=== PATIENT | male | born 1955 | race Hispanic/Latino ===

== ENCOUNTER → 2019-06-17 | Day surgery (SDC) | payer BC ==
--- NOTE | 2019-06-16 17:15 | NUR ---
Pt arrived in general good physical health for interview of scheduled procedure. Review of medical history and current medications. Procedural consent, pre-op orders, and YANIV education completed. All questions clarified and or answered where appropriate. pt verbalizes understanding to include day of procedure expectations. - [facility]
[2019-06-16 17:53] LABS: BASOPHILS # (AUTO) 0.1 (0.0-0.1); BASOPHILS % 0.6 % (0.0-1.0); EOSINOPHILS # (AUTO) 0.2 (0.0-0.4); HEMATOCRIT 43.4 % (38.2-49.6); HEMOGLOBIN 14.6 g/dL (14.0-18.0); LYMPHOCYTES # (AUTO) 1.9 (1.0-3.2); LYMPHOCYTES % 21.4 % (18.0-39.1); MEAN CORPUSCULAR HGB CONC 33.6 g/dL (31-35); MEAN CORPUSCULAR VOLUME 86.3 fL (81-99); MONOCYTES # (AUTO) 0.7 (0.2-0.8); MONOCYTES % 7.4 % (4.4-11.3); NEUTROPHILS # (AUTO) 6.1 (2.1-6.9); PLATELET COUNT 191 x10e3/uL (140-360); RED BLOOD COUNT 5.03 x10e6/uL (4.3-5.7); RED CELL DISTRIBUTION WIDTH 14.6 % (11.7-14.4)
[2019-06-16 18:07] LABS: INR 0.86; PARTIAL THROMBOPLASTIN TIME 26.7 seconds (23.8-35.5); PROTHROMBIN TIME 12.2 seconds (11.9-14.5)
[2019-06-16 18:11] LABS: ALANINE AMINOTRANSFERASE 27 IU/L (0-55); ALBUMIN 3.4 g/dL (3.5-5.0); ALBUMIN/GLOBULIN RATIO 0.9 (0.8-2.0); ALKALINE PHOSPHATASE 70 IU/L (40-150); ANION GAP 12.9 mmol/L (8-16); BLOOD UREA NITROGEN 16 mg/dL (7-26); BUN/CREATININE RATIO 14 (6-25); CALCIUM 10.2 mg/dL (8.4-10.2); CARBON DIOXIDE 28 mmol/L (22-29); CHLORIDE 102 mmol/L (98-107); CREATININE, SERUM 1.18 mg/dL (0.72-1.25); EST GLOMERULAR FILTRATION RATE > 60 ML/MIN (60-); GLUCOSE 182 mg/dL (74-118); POTASSIUM 3.9 mmol/L (3.5-5.1); SODIUM 139 mmol/L (136-145)
[~2019-06-17] VITALS: Ht 179.1 cm; Wt 104.3 kg
[~2019-06-17] MED LIST: HYDROCHLOROTHIA25 MG PO; LIDOCAINE HCL 2% LOCAL INJ 5 ML SDV VIAL INJ ONE; PROPOFOL IV EMULSION 10 MG/ML 20 ML VIAL ONE
--- NOTE | 2019-06-17 13:50 | NUR ---
1300 - pt received for YANIV to OR 7, placed on bedside monitoring. pt positioned for procedure. IV site patent to R AC area , VS wnl, NSR rythm 1305 - hurricaine spray (spray 1) to oral cavity 1307 - hurricaine spray (spray 2) to oral cavity 1326 - all responsible staff present, Timeout performed 1327 - bite block positioned 1331 - YANIV probe passed 1341- agitated saline injected for bubble study 1342 - YANIV probe removed , no gross trauma or distress observed 1350 - pt taken to CCL 9 for further recovery
--- NOTE | 2019-06-17 14:00 | NUR ---
Hand off to Dulce Ro RN for recovery . Review of orders and disposition. transfer of care - [facility] [place]
== END | disposition home or self-care (01) ==
LOC: CATH LAB 06-16 16:50
PROVIDERS: ATTEND Internal Medicine Cardiovascular Disease
DX: I51.89 Other ill-defined heart diseases (principal); Z01.810 Encounter for preprocedural cardiovascular examination; Z01.812 Encounter for preprocedural laboratory examination
CPT/HCPCS: 36415; 80053; 85025; 85610; 85730; 93005; 93312; 93320; 93325; J2001; J2250; J2704; J7030

== ENCOUNTER → 2019-06-25 | Outpatient (CLI) | payer BC ==
[~2019-06-25] MED LIST changes: +IOPAMIDOL 370 MG/ML 200 ML INFUS..BTL INJ ONE; -LIDOCAINE HCL 2% LOCAL INJ 5 ML SDV VIAL INJ ONE; +METOPROLOL TARTRATE INJ 1 MG/ML VIAL ONE; +NITROGLYCERIN 0.4 MG SUBL ONE; -PROPOFOL IV EMULSION 10 MG/ML 20 ML VIAL ONE; +SODIUM CHLORIDE 0.9% 100 ML 100 ML ONE
[2019-06-25 08:46] LABS: BLOOD UREA NITROGEN 15 mg/dL (7-26); BUN/CREATININE RATIO 16 (6-25); CREATININE, SERUM 0.93 mg/dL (0.72-1.25); EST GLOMERULAR FILTRATION RATE > 60 ML/MIN (60-)
--- NOTE | 2019-06-26 16:26 | Diagnostic Imaging Report ---
EXAM: CALCIUM SCORE AND CORONARY CTA INDICATION: ^[id number] ^0900 ^LT ATRIAL MASS/SOB COMPARISON: None. TECHNIQUE: Multi-detector CT technology was employed (64 MDCT [employer]). Minimal slice thickness with retrospective gating was performed following the intravenous administration of contrast material. In addition delayed images of the heart were obtained for evaluation of a cardiac mass. The patient was premedicated with 2.5 mg i.v. metoprolol and 0.4 mg sublingual nitroglycerin for heart rate control and coronary dilation, respectively. IV CONTRAST: 100 mL of Isovue-370 ORAL CONTRAST: None COMPLICATIONS: None RADIATION DOSE: Total DLP: 1789.2 mGy*cm Estimated effective dose: (DLP x 0.015 x size factor) mSv CTDIvol has been reviewed. It is below the limits set by the Radiation Protocol Committee (RPC). For optimization of anatomic evaluation, multiplanar reconstruction, maximum intensity projections, and advanced 3-D off-line postprocessing were performed on a dedicated stand-alone workstation under the direct supervision of the interpreting physician. QUALITY: Excellent FINDINGS: CALCIUM SCORE: The observed Agatston Calcium Score of 0 is at percentile 0% for subjects of the same age and gender who are free of clinical cardiovascular disease and treated diabetes. The Agatston score for each vessel is as follows: LM: 0 LAD: 0 LCx: 0 RCA: 0 DISTRIBUTION OF THE CALCIFIED PLAQUES: No identifiable calcified plaques in the coronary arteries. CORONARY ANATOMY: There is normal origin of the coronary arteries. Left Main Coronary Artery: The left main is normal sized vessel that bifurcates into the LAD and circumflex. There is no evidence of atherosclerotic changes or stenotic disease. Left Anterior Descending Coronary Artery: The LAD is a normal size vessel that wraps around the apex. It gives rise to 2 acute diagonal branches. There is no evidence of atherosclerotic changes or stenotic disease. Left Circumflex Coronary Artery: The LCX is a normal size vessel, which is non-dominant. It gives rise to 2 obtuse marginal branches. There is no evidence of atherosclerotic changes or stenotic disease. Right Coronary Artery: The RCA is a normal size vessel, which is dominant. It gives rise to a conus branch, AV kyle branch, and 2 acute marginal branches. In its distal segment it bifurcates into the PDA and PV branch. There is no evidence of atherosclerotic changes or stenotic disease. CARDIAC MORPHOLOGY AND FUNCTION: The left atrium is moderately enlarged, measuring 4.8 cm in AP diameter and contains a mildly enhancing 4.6 x 3.2 cm mass. The mass has a broad attachment to the fossa ovalis and shows more heterogeneous appearance on the delayed images. 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 There is no protrusion of the mass into the mitral valve. The left ventricle is borderline in size with a left ventricular end-diastolic diameter of of 5.7 cm. The right atrium and right ventricle appear also mildly prominent. Mild calcifications of the mitral valve. LIMITED CHEST: Limited views of the visualized chest show no abnormality within chest wall and mediastinum. No mediastinal lymphadenopathy. Mild linear scarring in the right middle lobe and lingula. The visualized portions of the ascending and descending thoracic aorta are of normal size. LIMITED ABDOMEN: 1.2 cm indeterminate left adrenal gland nodule (series 3, image 229). BONES: No acute osseous abnormalities. IMPRESSION: 1. Total Agatston Calcium Score: 0 that corresponds to percentile 0%, representing no identifiable calcified plaques in the coronary arteries. 2. Normal coronary anatomy without evidence of atherosclerotic changes or stenotic disease. CAD-GEOFFREY 0 Reference: http://c.[email or web address]/sites/scct.site-[email or web address]/resource/resmgr/Docs/JCCT_Guidelines_ AD_RADS.pdf 3. Large (4.6 x 3.2 cm) left atrial mass with CT findings favoring left atrial myxoma or thrombus, though cardiac MRI is more sensitive for its evaluation. There is no protrusion into the mitral valve on 4D cine of the heart. 4. Indeterminate 1.2 cm left adrenal gland nodule. If this finding is unknown to the patient, recommend further evaluation with MRI or CT with and without contrast adrenal gland mass protocol. Signed by: Dr. Tatyana Diez M.D. on 06/26/2019 4:23 PM
== END ==
LOC: CT 07:00
PROVIDERS: ATTEND Internal Medicine Cardiovascular Disease
DX: D15.1 Benign neoplasm of heart (principal); R06.02 Shortness of breath
CPT/HCPCS: 36415; 75574; 82565; 84520; Q9967

== ENCOUNTER → 2019-07-02 | Day surgery (SDC) | payer BC ==
[2019-06-30 12:25] LABS: BASOPHILS # (AUTO) 0.1 (0.0-0.1); BASOPHILS % 0.8 % (0.0-1.0); EOSINOPHILS # (AUTO) 0.2 (0.0-0.4); EOSINOPHILS % 2.2 % (0.0-6.0); HEMOGLOBIN 14.6 g/dL (14.0-18.0); LYMPHOCYTES # (AUTO) 1.9 (1.0-3.2); LYMPHOCYTES % 21.7 % (18.0-39.1); MEAN CORPUSCULAR HEMOGLOBIN 28.6 pg (28-32); MEAN CORPUSCULAR HGB CONC 32.4 g/dL (31-35); MEAN CORPUSCULAR VOLUME 88.1 fL (81-99); MONOCYTES # (AUTO) 0.7 (0.2-0.8); MONOCYTES % 7.7 % (4.4-11.3); NEUTROPHILS # (AUTO) 5.9 (2.1-6.9); NEUTROPHILS % 67.1 % (38.7-80.0); PLATELET COUNT 187 x10e3/uL (140-360); RED BLOOD COUNT 5.11 x10e6/uL (4.3-5.7); RED CELL DISTRIBUTION WIDTH 14.5 % (11.7-14.4)
[2019-06-30 12:32] LABS: INR 0.94; PROTHROMBIN TIME 13.1 seconds (11.9-14.5)
[2019-06-30 12:33] LABS: PARTIAL THROMBOPLASTIN TIME 27.1 seconds (23.8-35.5)
[2019-06-30 12:49] LABS: ALANINE AMINOTRANSFERASE 27 IU/L (0-55); ALBUMIN 3.6 g/dL (3.5-5.0); ALBUMIN/GLOBULIN RATIO 0.9 (0.8-2.0); ALKALINE PHOSPHATASE 66 IU/L (40-150); ANION GAP 12.8 mmol/L (8-16); BLOOD UREA NITROGEN 15 mg/dL (7-26); BUN/CREATININE RATIO 16 (6-25); CARBON DIOXIDE 22 mmol/L (22-29); CHLORIDE 107 mmol/L (98-107); CREATININE, SERUM 0.94 mg/dL (0.72-1.25); EST GLOMERULAR FILTRATION RATE > 60 ML/MIN (60-); GLUCOSE 101 mg/dL (74-118); POTASSIUM 3.8 mmol/L (3.5-5.1); SODIUM 138 mmol/L (136-145)
[~2019-07-02] VITALS: Ht 177.8 cm; Wt 104.3 kg
[2019-07-02] VITALS (10 sets, daily range): BP systolic 96–120; BP diastolic 60–83
[~2019-07-02] MED LIST changes: +FENTANYL CITRATE/PF 100MCG/2 ML INJ ONE; +HEPARIN SOD/SOD CHLORIDE 2,000 ML ONE; +LIDOCAINE HCL 2% LOCAL 20 ML VIAL ONE; -METOPROLOL TARTRATE INJ 1 MG/ML VIAL ONE; +MIDAZOLAM HCL 2 MG/2 ML VIAL ONE; -NITROGLYCERIN 0.4 MG SUBL ONE; -SODIUM CHLORIDE 0.9% 100 ML 100 ML ONE; +SODIUM CHLORIDE 0.9% 1000ML 1,000 ML ONE; +SODIUM CHLORIDE 0.9% 500ML 500 ML ONE; +VERAPAMIL HCL 2.5 MG/ML 2 ML VIAL ONE
--- OUTSIDE RECORDS SUMMARY | 2019-07-02 08:43 | XMS REPORT ---
Author Author [facility] Address Unknown Phone Unavailable Care Team Providers Care Extended Day Teacher Name Role Phone Deya JOHN Unavailable Unavailable Problems This patient has no known problems. Allergies, Adverse Reactions, Alerts This patient has no known allergies or adverse reactions. Medications This patient has no known medications. Results Test Description Test Time Test Comments Text Results Atomic Results Result Comments CTA CORONARY W or WO CALCIUM 2019-06-25 13:24:00 [place] [address] Patient Name: DENIS REDMOND MR #: [id number] : 1955 Age/Sex: 64/M Req #: [id number] Adm Physician: Ordered by: KEIKO JOHN MD Report #: [id number] Location: CT Room/Bed: Procedure: [id number] CT/CTA CORONARY W or WO CALCIUM Exam Date: 06/25/19 Exam Time: 899 REPORT STATUS: Signed EXAM: CALCIUM SCORE AND CORONARY CTA INDICATION: [id number] LT ATRIAL MASS/SOB COMPARISON: None. TECHNIQUE: Multi-detector CT technology was employed (64 MDCT [employer]). Minimal slice thickness with retrospective gating was performed following the intravenous administration of contrast material. In addition delayed images of the heart were obtained for evaluation of a cardiac mass. The patient was premedicated with 2.5 mg i.v. metoprolol and 0.4 mg sublingual nitroglycerin for heart rate control and coronary dilation, respectively. IV CONTRAST: 100 mL of Isovue-370 ORAL CONTRAST: None COMPLICATIONS: None RADIATION DOSE: Total DLP: 1789.2 mGy*cm Estimated effective dose: (DLP x 0.015 x size factor) mSv CTDIvol has been reviewed. It is below the limits set by the Radiation Protocol Committee (RPC). For optimization of anatomic evaluation, multiplanar reconstruction, maximum intensity projections, and advanced 3-D off-line postprocessing were performed on a dedicated stand-alone workstation under the direct supervision of the interpreting physician. QUALITY: Excellent FINDINGS: CALCIUM SCORE: The observed Agatston Calcium Score of 0 is at percentile 0% for subjects of the same age and gender who are free of clinical cardiovascular disease and treated diabetes. The Agatston s core for each vessel is as follows: LM: 0 LAD: 0 LCx: 0 RCA: 0 DISTRIBUTION OF THE CALCIFIED PLAQUES: No identifiable calcified plaques in the coronary arteries. CORONARY ANATOMY: There is normal origin of the coronary arteries. Left Main Coronary Artery: The left main is normal sized vessel that bifurcates into the LAD and circumflex. There is no evidence of atherosclerotic changes or stenotic disease. Left Anterior Descending Coronary Artery: The LAD is a normal size vessel that wraps around the apex. It gives rise to 2 acute diagonal branches. There is no evidence of atherosclerotic changes or stenotic disease. Left Circumflex Coronary Artery: The LCX is a normal size vessel, which is non-dominant. It gives rise to 2 obtuse marginal branches. There is no evidence of atherosclerotic changes or stenotic disease. Right Coronary Artery: The RCA is a normal size vessel, which is dominant. It gives rise to a conus branch, AV kyle branch, and 2 acute marginal branches. In its distal segment it bifurcates into the PDA and PV branch. There is no evidence of atherosclerotic changes or stenotic disease. CARDIAC MORPHOLOGY AND FUNCTION: The left atrium is moderately enlarged, measuring 4.8 cm in AP diameter and contains a mildly enhancing 4.6 x 3.2 cm mass. The mass has a broad attachment to the fossa ovalis and shows more heterogeneous appearance on the delayed images. 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 There is no protrusion of the mass into the mitral valve. The left ventricle is borderline in size with a left ventricular end-diastolic diameter of of 5.7 cm. The right atrium and right ventricle appear also mildly prominent. Mild calcifications of the mitral valve. LIMITED CHEST: Limited views of the visualized chest show no abnormality within chest wall and mediastinum. No mediastinal lymphadenopathy. Mild linear scarring in the right middle lobe and lingula. The visualized portions of the ascending and descending thoracic aorta are of normal size. LIMITED ABDOMEN: 1.2 cm indeterminate left adrenal gland nodule (series 3, image 229). BONES: No acute osseous abnormalities. IMPRESSION: 1. Total Agatston Calcium Score: 0 that corresponds to percentile 0%, representing no identifiable calcified plaques in the coronary arteries. 2. Normal coronary anatomy without evidence of atherosclerotic changes or stenotic disease. CAD-GEOFFREY 0 Reference: http://c.[email or web address]/sites/scct.site-[email or web address]/resource/resmgr/Docs/JCCT_Guidelines_ AD_RADS.pdf 3. Large (4.6 x 3.2 cm) left atrial mass with CT findings favoring left atrial myxoma or thrombus, though cardiac MRI is more sensitive for its evaluation. There is no protrusion into the mitral valve on 4D cine of the heart. 4. Indeterminate 1.2 cm left adrenal gland nodule. If this finding is unknown to the patient, recommend further evaluation with MRI or CT with and without contrast adrenal gland mass protocol. Signed by: Dr. Keturah Otero M.D. on 06/26/2019 4:23 PM Dictated By: KETURAH OTERO MD [id number] Transcribed By: OLRENA on 06/26/196 COPY TO: KEIKO JOHN MD
--- NOTE | 2019-07-02 09:10 | NUR ---
0910 Pt in rm #10, prepped for procedure NKA. 1030 case posted. Identifierx2.Alert oriented and appropriate, PERRLA, respirations even and unlabored to room air. Pulses x4 extremities strong equal and equal. Pedal pulses PT/DP x4 present and marked. Cap fill brisk < 3 sec. bilateral feet semi cool and pale. Skin warm and dry integrity appears intact in general. IV started left hand Gabriel RN 0.9NS iv infusing 150hr 500cc per iv controller and presents healthy w/o s/s of infiltration or complaint. Abdomen soft and supple. pt offered toileting, urinated .Person with Family at bedside. Pt and family verbalizes understanding of POC. No further preop ordered. Denies CP or SOB ready for procedure Report to Wesley DOYLE. selma/rn
--- NOTE | 2019-07-02 11:30 | NUR ---
1130 Bedside report received from VIVEK Adame. Alert oriented and appropriate, PERRLA, respirations even and unlabored to room air. Pulses x4 extremities equal and strong. Pedal pulses PT/DP x4 Cap fill brisk < 3 sec. [facility] No fix Dr Aparicio Rt TR band approach. Skin warm and dry integrity appears D/I. IV 20g to left hand, presents healthy w/o s/s of infiltration or complaint. Abdomen soft and supple. pt offered toileting, denies need to urinate or defecate. No personal affects with patient. Family Leatha . Pt and family verbalizes understanding of POC. Currently w/o complaint of pain or need. ds/rn
--- NOTE | 2019-07-02 12:30 | NUR ---
1230 RADIAL Compression removal: Initial Cuff volume 10 cc 1230 -2cc Removed No hematoma/bleeding noted with normal neurovascular function. 1245 -3cc Removed No hematoma/ bleeding noted with normal neurovascular function. 1300 -3cc Removed No hematoma/bleeding noted with normal neurovascular function. 1315 -2cc Removed No hematoma/ bleeding noted with normal neurovascular function. Air removal completed. Stasis achieved sterile 2x2,Tegaderm, Coban dressing No hematoma, bleeding noted with normal neurovascular function. Wrist splint in place. Pt instructed on POC. Ds/Rn
--- NOTE | 2019-07-02 14:30 | NUR ---
1430Pt meets DC criteria. D/I assessed for s/s of complication and presence of hematoma. Skin warm, dry, no discolor, and pulses present. IV removed from rt. Distal tip appears intact. VS WNL. Pt denies pain, sob, or need at this time. Family / Review of discharge paperwork and follow up instructions. verbalized understanding. Pt to wheelchair and transported to front of hospital. Transferred to private vehicle under own strength w/o incident with DC paperwork in hand. - ds/rn
--- NOTE | 2019-07-06 00:17 | Operative Report ---
DATE OF PROCEDURE: 07/02/2019 SURGEON: Rafa Angel MD TOUCH UP PAINTER HAND: Rafa Angel MD, Interventional Cardiology. PROCEDURE INDICATION: Preoperative evaluation for cardiac surgery, patient with left facial mass, the patient with abnormal stress test and angina pectoris. PROCEDURE PERFORMED: Selective coronary angiography. PROCEDURE COMPLICATIONS: None. ESTIMATED BLOOD LOSS: Less than 15 mL. PROCEDURE SUMMARY: After consent was obtained, patient was prepped and draped in a sterile fashion. The right radial site was locally infiltrated with 2% lidocaine and access was obtained. A 5-Occitan outer diameter slender sheath was advanced and the reversal catheter to engage the left main for angiography in multiple views and then engage the right coronary artery for angiography in multiple views. These were the following findings. 1. Left main is large in caliber with luminal irregularities gives an LAD and circumflex. 2. The LAD has luminal irregularities, large in caliber gives diagonals and multiple septal perforators. 3. The circumflex is large in caliber gives three obtuse marginal and left atrial branch that seems to be well developed and is associated with some late tissue blocking at the left atrial site and may represent atrial perfusion to known left atrial mass symptoms. The right coronary artery is dominant with luminal irregularities, it gives two RV marginals and terminal RPDA and RPLV. CONCLUSION: No evidence of significant obstructive coronary artery disease with left atrial branch that possibly present arterial flow/perfusion to the observed left atrial mass. Surgical correlation is advised. Recommend with TR band, proceed with surgery with [id number] risk. Rafa Angel MD AFV/MODL /[id number]
== END | disposition home or self-care (01) ==
LOC: CATH LAB 08:38
PROVIDERS: ATTEND Internal Medicine Cardiovascular Disease
DX: I20.9 Angina pectoris, unspecified (principal); R94.39 Abnormal result of other cardiovascular function study; R06.02 Shortness of breath; I10 Essential (primary) hypertension; Z01.812 Encounter for preprocedural laboratory examination; E66.01 Morbid (severe) obesity due to excess calories; Z68.33 Body mass index [BMI] 33.0-33.9, adult; F17.210 Nicotine dependence, cigarettes, uncomplicated
CPT/HCPCS: 36415; 80053; 85025; 85610; 85730; 93454; C1769; J2001; J2250; J3010; J7030; J7040; Q9967; 93458; 99153